=== PATIENT | male | born 1960 | race Caucasian/White ===

== ENCOUNTER → 2018-05-22 07:42 | Outpatient (CLI) | payer OTHER, SELFPAY ==
--- NOTE | 2018-05-22 07:53 | CT_ITS ---
EXAM: CT LUNG LOW DOSE WO CONTRAST TECHNIQUE: The exam was performed on a [employer] Light Speed [address] scanner using 3.0 mGy CTDI. A low dose helical CT CHEST was performed on a multi-detector scanner. All CT scans at this facility use one or more dose reduction techniques, viz.: automated exposure control, ma/kV adjustment per patient size (including targeted exams where dose is matched to indication, i.e. head) or iterative reconstruction technique. The LDCT was performed in a facility that meets the criteria for the screening program. Data regarding this exam was submitted to ACR which is an approved registry. The order for this exam indicates that it came as a result of a lung cancer screening counseling shard decision-making visit that included all the elements required of such a visit including smoking cessation. The radiologist interpreting this exam meets the [facility] criteria for the LDCT lung cancer screening program. The exam is reported using the Lung-RADS classification scale and reported to the ACR registry. NOTE: This study was performed for the specific purposes of lung cancer screening and is not an alternative to diagnostic chest CT. RADIATION DOSE: CTDI vol(CT dose Index-volume) = 2.9mGy DLP (Dose Length Product) = 107.47 mGy-cm COMPARISON: Prior CT abdomen which includes lung bases from 2013 HISTORY: Smoker currently. One pack per day 46 years = 46 pack-year FINDINGS No no suspicious lung nodule or mass. Benign and most likely benign findings. Benign calcified granuloma at the left lung base LLL 6 mm size. Scant scattered minor pleural-parenchymal scarring and atelectasis is seen at the margin, and periphery the lung lee bilaterally. Most evident along the left heart border lingula. Minimal linear scarring at lingula sagittal image [id number] Mediastinum. No significant hilar or mediastinal adenopathy. There are scattered calcified nodes throughout the mediastinum and left clair compatible with old granulomatous disease. Heart upper normal size with prominent coronary artery calcification throughout the LAD left main, circumflex artery. Minimal calcification right coronary.. No pericardial effusion. Uppermost abdomen. No significant findings on these Limited views here Old bilateral rib fractures. Old fractures involving the right T10, 9, 8 ribs laterally.. Vague Old fractures involving the lower left lateral ribs as well. T-spine with. Mild degenerative changes throughout. T-spine LUNG PARENCHYMA Emphysema: Minimal centrilobular emphysematous changes . IMPRESSION: 1. No suspicious lung nodule or mass. No areas of concern 2. . More likely Benign-appearing features Lung RADS Category: 2 Minimal scarring February accounts percent scattered densities at the periphery the lung. Old granulomatous disease. 2. Prominent Coronary artery calcification RECOMMENDATIONS: 12 monthd LDCT follow-up
== END ==
PROVIDERS: PCP Family Medicine; Visit Provider Family Medicine
DX: Z12.2 Encounter for screening for malignant neoplasm of respiratory organs (principal); Z87.891 Personal history of nicotine dependence

== ENCOUNTER → 2020-06-30 14:23 | Outpatient (CLI) | payer OTHER, SELFPAY ==
--- NOTE | 2020-06-30 14:28 | CT_ITS ---
PROCEDURE: CT LUNG SCREENING CLINICAL INDICATION: H/O NICOTINE DEPENDENCE COMPARISON: CT LUNGSCREEN CT lung screening from 05/22/2018 TECHNIQUE: The exam was performed on a GE Light Speed [address] scanner using 2.90 mGy CTDI. A low dose helical CT CHEST was performed on a multi-detector scanner. All CT scans at the facility use one or more dose reduction, viz: automated exposure control, ma/kV adjustment per patient size (including targeted exams where dose is matched to indication, i.e. head), or iterative reconstruction technique. The LDCT was performed in a facility that meets the criteria for the screening program. Data regarding this exam was submitted to ACR which is an approved registry. The order for this exam indicates that it came as a result of a lung cancer screening counseling shard decision-making visit that included all the elements required of such a visit including smoking cessation. The radiologist interpreting this exam meets the [facility] criteria for the LDCT lung cancer screening program. The exam is reported using the Lung-RADS classification scale and reported to the ACR registry. NOTE: This study was performed for the specific purposes of lung cancer screening and is not an alternative to diagnostic chest CT. RADIATION DOSE: CTDI vol(CT dose Index-volume) = 2.90mG DLP (Dose Length Product) = mGcm FINDINGS: No evidence of suspicious lung nodules. No focal consolidation, pleural effusions or pneumothorax. Calcified granuloma in the left lower lobe. Minor subsegmental atelectasis is noted in the lingular and right lower lobe. The central tracheobronchial tree is patent. The heart size is normal. Atherosclerotic vascular calcification of the thoracic aorta and coronary arteries are noted. No pericardial effusions. No significant mediastinal adenopathy. Calcified lymph nodes are noted.. Evaluation of hilar is limited due to lack of intravenous contrast although no gross lymphadenopathy is noted. Minor multilevel degenerative changes of the visualized thoracic spine. Old rib fractures on the right. OTHER FINDINGS: The visualized upper abdominal solid organs are unremarkable within the limitations of low-dose unenhanced study. IMPRESSION: Lung-RADS Category 2 Benign Appearance or Behavior Follow-up: Follow-up low-dose CT of the chest in 12 months is recommended. Dictated by: Inocencia Scott 06/30/2020 15:37 Inocencia Scott in [place] 06/30/2020 15:37
== END ==
PROVIDERS: PCP Family Medicine; Visit Provider Family Medicine
DX: Z87.891 Personal history of nicotine dependence (principal); Z12.2 Encounter for screening for malignant neoplasm of respiratory organs
CPT/HCPCS: 71271